=== PATIENT | female | born 1980 | race Caucasian/White ===

== ENCOUNTER 2017-09-14 21:21 | Emergency (ER) ==
[2017-09-14] MEDS ORDERED: CATAPRES PO STA (21:30)
[2017-09-14 21:35] VITALS: BMI 23.8
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
[2017-09-14] MEDS ORDERED: XANAX PO STA (23:57)
[2017-09-14] MEDS ORDERED: LOPRESSOR PO STA (23:57)
[2017-09-15] MEDS ORDERED: XANAX ONE (00:01)
[2017-09-15 00:20] VITALS: BP 162/107; TEMP 98.8
== END 2017-09-15 00:47 | disposition home or self-care (01) ==
LOC: ED 21:21
DX: R51 Headache (principal); R42 Dizziness and giddiness; M54.2 Cervicalgia; F17.210 Nicotine dependence, cigarettes, uncomplicated; W50.0XXA Accidental hit or strike by another person, initial encounter
CPT/HCPCS: 99283